=== PATIENT | male | born 1970 | race Caucasian/White ===

== ENCOUNTER 2021-02-05 02:47 | Emergency (ER) | payer OTHER, SELFPAY ==
[2021-02-05 02:48] VITALS: BP 136/75; PULSE 91; RESP 17; TEMP 38.2; O2SAT 96; BMI 32.1
[2021-02-05 02:54] VITALS: BP 136/75; PULSE 91; RESP 17; TEMP 38.2; O2SAT 96
--- NOTE | 2021-02-05 03:06 | RAD_ITS ---
STUDY: X-RAY CHEST REASON FOR EXAM: Male, 50 years old. cough TECHNIQUE: Single AP portable view of the chest. COMPARISON: None. FINDINGS: There are superimposed monitor leads. Low lung volumes with bronchial prominence, hazy opacification right upper lung and left perihilar parenchyma. There is no demonstrated pleural abnormality. Normal size heart. Normal mediastinum and tristen. Normal visualized pulmonary arteries. Normal visualized aortic arch and descending thoracic aorta. Normal visualized thoracic spine. Normal visualized ribs, clavicles, and shoulders. There is no demonstrated abnormality of the visualized soft tissue structures of the upper abdomen. RAD/Chest 1 View (Portable) IMPRESSION: Bronchial inflammation, opacification medially infiltrates. Findings exaggerated by low lung volume. Imaging features can be seen with covid 19 pneumonia, but are nonspecific and may occur with a variety of infectious and noninfectious processes. Electronically Signed: Estrellita Bell MD at 4:18 EST , Service support ,
--- NOTE | 2021-02-05 03:07 | EX.ED.DYSGE1 ---
HPI History of Present Illness Chief Complaint: Fever Narrative Narrative: Patient is a 50-year-old male with past medical history of anxiety and depression. He states he began with congestion cough and muscle aches as well as fevers approximately 6 days ago. He states he is not vaccinated against Covid and he denies any known exposures but states he feels like he definitely has Covid. He states he has been taking Tylenol and Motrin but the fever has persisted and his muscle aches and fatigue are worsening. Secondary to his he feels like he cannot wait to see his family doctor and presents to the ER for evaluation. [facility] Medical History Anxiety Home Medications Xanax QHS 02/05/21 [History Last Taken Unknown] albuterol sulfate [Ventolin HFA] 1 - 2 puff INHALATION Q4H PRN PRN #1 device 02/05/21 [Rx Last Taken Unknown] dexamethasone [Decadron] 6 mg PO DAILY 10 Days #10 tab 02/05/21 [Rx Last Taken Unknown] promethazine-codeine 5 ml PO Q6H PRN 7 Days #140 ml 02/05/21 [Rx Last Taken Unknown] venlafaxine [Effexor] 75 mg PO DAILY 02/05/21 [History Last Taken Unknown] Allergy/AdvReac Type Severity Reaction Status Date / Time No Known Allergies Allergy Verified 02/05/21 02:51 Social History Smoking Status: Current every day smoker tobacco type: cigarettes ROS ROS ED Constitutional Constitutional ED: Reports chills and fever(s) Eyes Eyes: Denies change in vision ENT ENT ED: Reports rhinorrhea and sore throat Cardiovascular Cardiovascular: Denies chest pain Respiratory/Chest Respiratory/Chest: Reports cough and dyspnea Gastrointestinal Gastrointestinal: Reports nausea; Denies abdominal pain, diarrhea or vomiting Genitourinary Genitourinary ED: Denies dysuria Musculoskeletal Musculoskeletal: Reports myalgias Integumentary Denies rash Neurologic Neurologic: Reports weakness; Denies headache(s) EXAM Physical Exam Const Vital Signs: 02/05/21 02:48 02/05/21 02:53 02/05/21 02:54 Temperature 100.8 F H 100.8 F H Temperature Source Oral Oral Pulse Rate 91 91 Respiratory Rate 17 17 Respiratory Effort Normal Blood Pressure 136/75 H 136/75 H Blood Pressure Mean 95 95 Pulse Ox 96 96 Oxygen Delivery Method Room Air Room Air Oxygen Flow Rate (L/min) 02/05/21 03:58 02/05/21 05:00 Temperature Temperature Source Pulse Rate 88 85 Respiratory Rate 16 17 Respiratory Effort Blood Pressure 119/79 99/64 Blood Pressure Mean 92 75 Pulse Ox 96 91 Oxygen Delivery Method Nasal Cannula Oxygen Flow Rate (L/min) 4 Positive well nourished, well developed and obese General Appearance ED: well developed Nutritional Appearance: obese HEENT Reports dry mucous membranes Mouth ED: Yes dry mucous membranes Mouth: dry mucous membranes Eyes PERRL and EOMs intact bilaterally Neck supple Neck Narrative: Positive anterior cervical lymphadenopathy noted Resp normal respiratory effort Resp Narrative: Breath sounds are diminished throughout with faint expiratory wheeze but no changes to suggest acute respiratory distress Cardio regular rate and regular rhythm GI normal to inspection, nondistended, normoactive bowel sounds, non-tender, non-distended and no masses GI Narrative: No voluntary guarding no rigidity no pulsatile mass Auscultation: normoactive bowel sounds Palpation: soft Extremity normal to inspection Neuro oriented x3 and CN's II-XII intact bilaterally Sensorium / Orientation: alert Motor Exam: strength 5/5 throughout Psych Psych Narrative: Patient has a depressed/flat affect Mood & Affect: depressed Skin no rashes or lesions noted MDM MDM MDM Narrative Medical decision making narrative: Patient presented to the ER with a low-grade fever but otherwise was not tachycardic or hypoxic. His constellation of symptoms is concerning for Covid therefore I elected to perform a Covid swab along with basic laboratory finding. White blood cell count is decreased consistent with Covid. The remainder of his labs reveal no clinically significant changes. Chest x-ray questions groundglass opacities consistent with Covid pneumonia and patient's Covid test is positive. He was given a liter of fluid as well as Decadron and pain medication and reported feeling better. At this time the patient does not have physical exam findings to suggest respiratory distress and he is not requiring supplemental oxygen. Therefore do not feel there is need for hospital placement. Patient will be placed on cough medication as well as Decadron and an inhaler. I will also prescribe him monoclonal antibody therapy to try and help improve his Covid symptoms. However at this time as he does not have need for supplemental oxygen I do not feel he needs placed in the hospital and can be discharged. Lab Data Attestation: I reviewed the patient's lab results. Labs: Laboratory Results - last 24 hr 02/05/21 02/05/21 02:58 02:58 WBC 2.9 L RBC 4.89 Hgb 14.6 Hct 41.0 MCV 83.8 MCH 29.9 MCHC 35.6 RDW Std Deviation 37.4 RDW Coeff of Racheal 12.2 Plt Count 113 L MPV 9.5 Immature Gran % (Auto) 0.300 Neut % (Auto) 78.1 H Lymph % (Auto) 18.2 L [place] % (Auto) 3.1 Eos % (Auto) 0.0 Baso % (Auto) 0.3 Absolute Neuts (auto) 2.2 Absolute Lymphs (auto) 0.52 L Nucleated RBC % 0 Diff Path Review May foll Sodium 136 Potassium 3.7 Chloride 102 Carbon Dioxide 26.0 Anion Gap 8 BUN 15 Creatinine 1.31 H Estim Creat Clear Calc 66.71 Est GFR (MDRD) Af Amer 74 Est GFR (MDRD) Non-Af 61 BUN/Creatinine Ratio 11.5 Glucose 149 H Calcium 8.3 L Total Bilirubin 0.60 Direct Bilirubin 0.22 AST 41 H ALT 41 Alkaline Phosphatase 52 Total Protein 7.2 Albumin 3.4 Globulin 3.8 Radiography Diagnostic Testing: Clinical Impression(s) from Imaging Studies Chest X-Ray 02/05/21 03:06 IMPRESSION: Bronchial inflammation, opacification medially infiltrates. Findings exaggerated by low lung volume. Imaging features can be seen with covid 19 pneumonia, but are nonspecific and may occur with a variety of infectious and noninfectious processes. Electronically Signed: Estrellita Bell MD at 4:18 EST , Service support , Discharge Plan Triage Chief Complaint: Fever ED Provider: Sheldon Ren Dx/Rx/DC Orders Clinical Impression: Pneumonia due to 2019 novel coronavirus, Mild dehydration Instructions: Coronavirus Disease 2019 (COVID-19): Caring for Yourself or Others Prescriptions: New dexamethasone [Decadron] 6 mg tablet 6 mg PO DAILY 10 Days Qty: 10 RF: 0 albuterol sulfate [Ventolin HFA] 90 mcg/actuation HFA aerosol inhaler 1 - 2 puff inhalation Q4H PRN PRN (Reason: Wheezing) Qty: 1 RF: 0 promethazine-codeine 6.25-10 mg/5 mL syrup 5 ml PO Q6H PRN (Reason: cough) 7 Days Qty: 140 RF: 0 No Action venlafaxine [Effexor] 50 mg Tablet 75 mg PO DAILY RF: 0 Xanax QHS RF: 0 Other Ambulatory Orders: COVID Outpatient Monoclonal Antibody Referral (Routine) Timeframe: 1 Day Facility: [facility] - Location: [facility] Ordered By: Dr. Sheldon Ren Primary Care Provider: [facility] Referrals: [facility] Rodas DO [Primary Care Provider] - Disposition Disposition: Home, Self Care
[2021-02-05 03:17] LABS: Absolute Lymphocyte Count 0.52 X10^3/uL (0.83-4.51); Absolute Neutrophil Count 2.2 X10^3/uL (2.0-7.7); Basophil# 0.01 X10^3/uL; Basophil% 0.3 % (0-1); Hemoglobin 14.6 g/dL (13.0-16.5); Lymphocyte # 0.52 X10^3/ul (0.83-4.51); Lymphocyte % 18.2 % (19-41); Mean Corp Hgb Conc 35.6 g/dL (32-36); Mean Corpuscular Hgb 29.9 pg (27.0-32.0); Mean Corpuscular Volume 83.8 fL (80-94); Mean Platelet Vol. 9.5 fl (6.2-12.0); Monocyte# 0.09 X10^3/uL; Monocyte% 3.1 % (0-10); NRBC Flagged by Analyzer 0 % (0-5); Neutrophil # 2.23 X10^3/uL (2.7-7.7); Neutrophil % 78.1 % (47-70); POSITIVE DIFFERENTIAL YES; POSITIVE MORPHOLOGY YES; Platelet Count 113 K/mm3 (150-450); RBC Distribution Width CV 12.2 % (11.6-14.6); RBC Distribution Width SD 37.4 fl (35.1-43.9); Red Blood Count 4.89 M/mm3 (4.6-6.2); White Blood Count 2.9 K/mm3 (4.4-11.0)
[2021-02-05 03:19] LABS: Differential Indicated SCAN CRITERIA MET
[2021-02-05] MEDS: Morphine 4 MG/ML Syringe IV (03:29)
[2021-02-05] MEDS: 0.9% Normal Saline 1,000 ML 999 ML IV (03:29)
[2021-02-05] MEDS: Ondansetron 4 MG/2 ML Vial IV (03:29)
[2021-02-05] MEDS: dexAMETHasone 10 MG/ML Vial IV (03:30)
[2021-02-05] MEDS: Acetaminophen 500 MG Tablet 1000 MG PO (03:30)
[2021-02-05 03:41] LABS: AST(SGOT) 41 U/L (15-37); Alanine Aminotransfer ALT/SGPT 41 U/L (16-61); Albumin, Serum 3.4 g/dL (3.2-5.0); Alkaline Phosphatase 52 U/L (45-117); Anion Gap 8 (5-15); BUN 15 mg/dL (7-18); BUN/Creat Ratio 11.5 RATIO (10-20); Bilirubin, Direct 0.22 mg/dL (0.00-0.30); Calcium,Total 8.3 mg/dL (8.5-10.1); Chloride 102 mmol/L (98-107); Creatinine, Serum 1.31 mg/dL (0.70-1.30); EST Glomerular Filtration Rate 61 mL/min (>60); Est Glom Filt Rate - Afr Amer 74 mL/min (>60); Estimated Creatinine Clearance 66.71 ml/min; Globulin 3.8 g/dL (2.2-4.2); Glucose 149 mg/dL (74-106); Potassium 3.7 mmol/L (3.5-5.1); Protein, Total 7.2 g/dL (6.4-8.2); Sodium Level 136 mmol/L (136-145)
[2021-02-05 03:58] VITALS: BP 119/79; PULSE 88; RESP 16; O2SAT 80; O2SAT 96
[2021-02-05 05:00] VITALS: BP 99/64; PULSE 85; RESP 17; O2SAT 91
--- NOTE | 2021-02-05 05:46 | ED.RN ---
CALLED JEANNETTE, , SHE IS TRYING TO FIND HIM A RIDE AND WILL CALL WHEN SHE FINDS ONE.
[2021-02-05 07:23] VITALS: PULSE 88; RESP 19; O2SAT 91
[2021-02-05 15:49] LABS: Pathologist Review Reviewed
== END 2021-02-05 07:46 | disposition home or self-care (01) ==
PROVIDERS: Emergency Provider Emergency Medicine; PCP Family Medicine
DX: U07.1 COVID-19 (principal); J12.82 Pneumonia due to coronavirus disease 2019; E86.0 Dehydration; F32.A Depression, unspecified; F41.9 Anxiety disorder, unspecified; Z79.899 Other long term (current) drug therapy; F17.210 Nicotine dependence, cigarettes, uncomplicated
CPT/HCPCS: 71045; 80048; 80076; 85025; 87426; 87804; 96361; 96374; 96375; 99285; J2405